=== PATIENT | male | born 1960 | race Caucasian/White ===

== ENCOUNTER 2019-12-09 01:08 | Emergency (ER) | payer BC ==
[~2019-12-09] VITALS: Ht 180.3 cm; Wt 115.7 kg
[2019-12-09 01:14] VITALS: Ht 180.3 cm; Wt 115.7 kg
[2019-12-09 02:20] VITALS: BP 131/85
== END 2019-12-09 02:53 | disposition home or self-care (01) ==
LOC: ED 01:08
DX: I83.892 Varicose veins of left lower extremity with other complications (principal); I10 Essential (primary) hypertension; Z98.890 Other specified postprocedural states